=== PATIENT | female | born 1970 | race Two or more races ===

== ENCOUNTER → 2023-06-19 | Emergency (ER) | payer BC, OTHER ==
[~2023-06-19] VITALS: Ht 167.6 cm; Wt 81.8 kg
[~2023-06-19] MED LIST: ACETAMINOPHEN 325 MG TAB PO ONE; MECLIZINE HCL 25 MG TAB PO ONE; ONDANSETRON HCL 4 MG/2 ML VIAL IV ONE; SODIUM CHLORIDE 0.9% 1,000 ML IV ONE
[2023-06-19 10:31] VITALS: PULSE 94; RESP 14; O2SAT 98
[2023-06-19 11:03] LABS: Basophils # (auto) 0 10 ^3/uL (0-0.2); Basophils % (auto) 0.2 % (0.0-2.0); Eosinophils # (auto) 0 10 ^3/uL (0-0.8); Eosinophils % (auto) 0.4 % (0.0-7.0); Hematocrit 42.4 % (36.0-46.0); Hemoglobin 14.1 g/dL (12.2-16.2); Lymphocytes # (auto) 0.9 10 ^3/uL (0.4-5.4); Lymphocytes % (auto) 9.7 % (10.0-50.0); Mean Corpuscular Hemoglobin 33.1 pg (28.0-32.0); Mean Corpuscular Hgb Conc. 33.3 g/dL (32.0-36.0); Mean Corpuscular Volume 99.3 fL (80.0-100.0); Monocytes # (auto) 0.6 10 ^3/uL (0-1.3); Monocytes % (auto) 6.5 % (0.0-12.0); Neutrophils # (auto) 7.8 10 ^3/uL (1.6-8.6); Neutrophils % (auto) 83.2 % (37.0-80.0); Red Blood Cells 4.27 10^6/uL (4.0-5.20); Red Cell Distribution Width 13.8 % (11.8-14.3); White Blood Cell 9.4 10^3/uL (4.4-10.8)
[2023-06-19 11:28] LABS: Albumin 3.5 g/dL (3.4-5.0); Calcium 8.6 mg/dL (8.5-10.1); Magnesium 2.1 mg/dL (1.6-2.6); Potassium 4.1 mmol/L (3.5-5.1)
[2023-06-19 11:32] LABS: BUN/Creatinine Ratio 15.6 (10.0-20.0); Total Protein 6.1 g/dL (6.4-8.2)
[2023-06-19 12:00] VITALS: TEMP 98.1
[2023-06-19 15:41] LABS: Urine Bacteria FEW /hpf (None Seen); Urine Blood Negative /uL (Negative); Urine Clarity Clear (Clear); Urine Color Yellow (Yellow); Urine Mucus FEW (None Seen); Urine Protein, UAD Negative (Negative); Urine Specific Gravity 1.015 (1.001-1.035); Urine Urobilinogen Normal (Negative); Urine WBC 2 /hpf (0 - 5)
[2023-06-19 16:00] VITALS: BP 115/64; PULSE 72; RESP 12; O2SAT 96
== END | disposition home or self-care (01) ==
LOC: EDBD 10:04 → ER 10:04
DX: R55 Syncope and collapse (principal); E86.0 Dehydration; Z90.710 Acquired absence of both cervix and uterus
CPT/HCPCS: 36415; 70450; 71045; 80053; 81001; 83735; 84484; 85025; 93005; 96361; 96374; 99285; J2405; J7030; J8597